=== PATIENT | male | born 1980 | race Caucasian/White ===

== ENCOUNTER 2022-10-01 06:54 | Day surgery (SDC) | payer BC ==
--- NOTE | 2022-09-30 17:17 | HISTORY AND PHYSICAL ---
ESOPHAGOGASTRODUODENOSCOPY HISTORY AND PHYSICAL HISTORY OF PRESENT ILLNESS: The patient is a 42-year-old white male who sees Dr. Michelle Guzmán in [place], [place] where he has been having about a 6-month history of epigastric pain with nausea. It had gotten acutely worse after 09/07. He also reports right and left upper quadrant discomfort, severe enough that he had to call in to work initially to take time off and it became so frequent that he has taken a leave of absence from work over the past 2 weeks. He had been set up to see a first line production supervisor in [place], but was not going to be able to get in for an EGD evaluation until November. I take care of his grandfather who brought him in to see about getting this done earlier. He denies melena or bright red blood per rectum but he report about a 30-pound weight loss. He denies night sweats, chills or fever. He has had no diarrhea or reported constipation. He will have a bloated sensation. He denies any radiation of the pain. He reports no history of smoking or any significant alcohol intake. He believes he was empirically given treatment for H. pylori. He is not aware of any blood tests or stool studies but is finishing up a course of clarithromycin, amoxicillin and b.i.d. pantoprazole. There has been some improvement but he is still having intermittent symptoms that seem to be improved for 10 or 15 minutes with food, then gets worse. Sometimes, the pain will wake him at night. PAST MEDICAL HISTORY: He is not aware of any previous history for ulceration. Up until 2 weeks ago, he had been taking ibuprofen and Naprosyn, read that this was a contraindication, they are in the same class of family, so he has not been taking either for the past 2 weeks. Previous b.i.d. pantoprazole, he had been taking it daily for the last 6 months since I recall. PAST SURGICAL HISTORY: He has had ankle surgery with titanium plate required and ORIF with no other surgeries being noted. FAMILY HISTORY: He is not aware of any family history for GI tract malignancy or peptic ulcer disease. 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 No smoking or drinking history noted. REVIEW OF SYSTEMS: CONSTITUTIONAL: No night sweats, chills or fever but 30-pound weight loss over the past 6 months. PULMONARY: Denies cough, wheezing or shortness of breath. GASTROINTESTINAL: As noted in the HPI. CARDIOVASCULAR: Denies chest pain, orthopnea, PND and also denies dysphagia. PHYSICAL EXAMINATION: GENERAL: Reveals a pleasant white male, appeared to be in acute distress. VITAL SIGNS: Weight 246 pounds and blood pressure 136/86. HEENT: Unremarkable. Sclerae nonicteric. CHEST: Clear. CARDIOVASCULAR: Reveals regular rate and rhythm without murmur, S3 or S4. ABDOMEN: Soft and supple without mass or organomegaly. He has epigastric right and left upper quadrant discomfort to palpation noted. No mass or organomegaly noted. No rebound or guarding present. EXTREMITIES: No cyanosis, clubbing or edema. ASSESSMENT AND PLAN: For further evaluation of nausea, epigastric pain and weight loss, the patient is being set up for an EGD in the morning. He is to continue to abstain from aspirin and nonsteroidal medication with further recommendations pending test results. Job ID: [id number] DocumentID: [id number] Dictated Date: 09/30/2022 16:28:52 Network Project Manager Date: 09/30/2022 17:04:00 Dictated By: AMBER ISAACS MD
[~2022-10-01] VITALS: Ht 172.7 cm; Wt 111.8 kg
[2022-10-01 07:15] VITALS: BP 137/92
[2022-10-01] MEDS ORDERED: LACTATED RINGERS 1,000 ML IV STA (07:16)
[2022-10-01] MEDS ORDERED: HURRICAINE EXT TUBE (BENZOCAINE) XX PRN (07:30)
[2022-10-01] MEDS ORDERED: ROSU40TA23 PO (07:32)
[2022-10-01] MEDS ORDERED: ESCI-2 PO (07:32)
[2022-10-01] MEDS ORDERED: PANT40TA52 PO (07:32)
[2022-10-01] MEDS ORDERED: LOSA50TA63 PO (07:32)
[2022-10-01] MEDS ORDERED: METH54TA10 PO (07:32)
[2022-10-01] MEDS ORDERED: CLAR-31 PO (07:32)
[2022-10-01] MEDS ORDERED: MIDAZOLAM 2 MG/2 ML (VERSED) VIAL ONE (07:46)
[2022-10-01] MEDS ORDERED: PROPOFOL INJECTION 50 ML IV ONE (07:46)
--- NOTE | 2022-10-01 07:49 | Pre-Op Note & Conscious Sedat ---
Pre-Operative Progress Note Date H&P Reviewed: Oct 01, 2022 Time H&P Reviewed: 07:49 History & Physical: H&P Reviewed, Patient Examed, No changes noted Pre-Op Diagnosis: epigastric pain nausea Moderate Sedation PreProcedure ASA Score 2 Airway Lungs Heart ASA score ASA 1: a normal healthy patient ASA 2: a patient with a mild systemic disease (mid diabetes, controlled hypertension, obesity ASA 3: a patient with a severe systemic disease that limits activity (angina, COPD, prior Myocardial infarction) ASA 4: a patient with an incapacitating disease that is a constant threat to life (CHF, renal failure) ASA 5: a moribund patient not expected to survive 24 hrs. (ruptured aneurysm) ASA 6: a declared brain- patient whose organs are being harvested. For emergent operations, add the letter E after the classification Mallampati Classification Grade 2 Sedation Plan Analgesia, Amnesia, Plan communicated to team members, Discussed options with patient/fam, Discussed risks with patient/fam The patient is an appropriate candidate to undergo the planned procedure, sedation, and anesthesia. The patient immediately re-assessed prior to indication. AMBER ISAACS MD Oct 01, 2022 07:49
[2022-10-01 08:10] VITALS: BP 137/75
[2022-10-01 08:15] VITALS: BP 132/86
[2022-10-01 08:20] VITALS: BP 136/82
--- NOTE | 2022-10-01 08:38 | Progress Note-Post Operative ---
Post-Procedure Note Physician (s)/Labor Employment Associate (s) Physician AMBER ISAACS MD Pre-Procedure Diagnosis Pre-Procedure Diagnosis: epigastric pain nausea Post-Procedure Diagnosis Post-operative diagnosis: The patient was placed in the left lateral decubitus position. The endoscope was inserted into the oral cavity and under direct Visualization the esophagus is intubated. The endoscope was passed down the esophagus through the stomach and the second portion of the duodenum. A careful inspection was made as the endoscope was withdrawn. Findings: The posterior pharynx epiglottis true and false vocal folds and arytenoid aperture were unremarkable to gross inspection. Small sliding hiatal hernia was present without evidence for erosive esophagitis De Paz's change or other abnormality. Biopsy was taken from at or just below the GE junction. The cardia and fundus of the stomach were unremarkable. There was some linear streaking antral erythema present a biopsy was obtained and submitted for histopathology and Helicobacter evaluation. No evidence for ulceration or other abnormality was noted. The pylorus pyloric channel duodenal bulb and second portion ileum were unremarkable to visual inspection. A/P 1. Mild appearing linear antral erythema was present suggesting underlying gastritis. Biopsy was obtained and submitted for histopathology and Helicobacter evaluation. 2. The patient did exhibit significant obstruction in the left lateral Decubitus position suggesting underlying significant sleep apnea with strongly advise sleep study for further evaluation. 3. In regards this patient's symptomatology suspect nonulcer dyspepsia however I would advise abdominal sonography To evaluate for gallbladder pathology and if unremarkable gastroparesis would be in the differential diagnosis as well and would consider Nuclear medicine gastric emptying evaluation. Amber Isaacs MD FACP. AMBER ISAACS MD Oct 01, 2022 08:38
[2022-10-01 08:50] VITALS: BP 136/82
--- NOTE | 2022-10-01 12:24 | Anesthesia-General Post-Op ---
MAC Patient Condition Mental Status/LOC: Same as Preop Cardiovascular: Satisfactory Nausea/Vomiting: Absent Respiratory: Satisfactory Pain: Controlled Complications: Absent Post Op Complications Complications None Follow Up Care/Instructions Patient Instructions None needed. Anesthesiology Discharge Order Discharge Order Patient is doing well, no complaints, stable vital signs, no apparent adverse anesthesia problems. No complications reported per nursing. ZARA OLGUIN CRNA Oct 01, 2022 12:24
== END 2022-10-01 09:40 | disposition home or self-care (01) ==
LOC: ENDO 06:54
PROVIDERS: ATTEND Internal Medicine
DX: K20.90 Esophagitis, unspecified without bleeding (principal); K31.89 Other diseases of stomach and duodenum; K44.9 Diaphragmatic hernia without obstruction or gangrene; E66.9 Obesity, unspecified; Z68.37 Body mass index [BMI] 37.0-37.9, adult

== ENCOUNTER → 2022-10-11 | Outpatient (CLI) | payer BC ==
[~2022-10-11] MED LIST: CLAR-31 PO; ESCI-2 PO; LOSA50TA63 PO; METH54TA10 PO; PANT40TA52 PO; ROSU40TA23 PO
--- NOTE | 2022-10-11 09:58 | Diagnostic Imaging Report ---
INDICATION: Abdominal pain. History of gastritis. PROCEDURE: Ultrasound abdomen complete. TECHNIQUE: Multiple real-time grayscale images were obtained of the abdomen in various projections. COMPARISON: None. FINDINGS: The liver is normal in size, shape and echotexture. There are no focal lesions. No intra or extrahepatic biliary dilatation is present. The common bile duct is nondilated and measures 0.3 cm. Echogenic foci are seen in the wall of the gallbladder. There is no evidence of gallbladder wall thickening or pericholecystic fluid. Sonographic Nagel's sign is negative. The visualized portions of the head and proximal body of the pancreas are within normal limits. The distal body and tail are not well visualized due to overlying bowel gas. Both kidneys are normal in size and echogenicity. The cortical thickness and the corticomedullary differentiation is well maintained. The right kidney measures 9.8 cm. The left kidney measures 11.5 cm. There is no evidence of calculi, focal mass or hydronephrosis. The spleen is prominent measuring 11.4 cm. The visualized upper aorta and IVC are normal in course and caliber. There is no ascites in the upper abdomen. IMPRESSION: 1. Echogenic foci in the wall of the gallbladder, which may represent impacted gallstones versus gallbladder polyps. No sonographic evidence of acute cholecystitis. 2. Splenomegaly. No focal splenic lesions. No ascites. Dictated by: Dictated on workstation # [id number]
== END ==
LOC: RAD 07:20
PROVIDERS: ATTEND Internal Medicine
DX: R16.1 Splenomegaly, not elsewhere classified (principal); Z87.19 Personal history of other diseases of the digestive system
CPT/HCPCS: 76700